=== PATIENT | female | born 1985 | race Caucasian/White ===

== ENCOUNTER → 2016-07-08 | Outpatient (CLI) | payer OTHER ==
[~2016-07-08] MED LIST: PRENTAB26 PO
== END | disposition home or self-care (01) ==
LOC: C.PAPS 09:44
PROVIDERS: ATTEND Physician Assistant
DX: Z12.4 Encounter for screening for malignant neoplasm of cervix (principal)

== ENCOUNTER → 2016-07-12 | Outpatient (CLI) | payer OTHER ==
[2016-07-12 13:56] LABS: PREG INTERNAL NEGATIVE QC NEG CLEAR BACKGROUND; PREG INTERNAL POSITIVE QC POS CONTROL LINE
[2016-07-12 14:09] LABS: PROLACTIN 5.36 ng/mL; THYROID STIMULATING HORMONE 1.26 uIu/ml (0.300-4.500)
== END | disposition home or self-care (01) ==
LOC: C.LAB1850 11:47
PROVIDERS: ATTEND Obstetrics & Gynecology
DX: N91.1 Secondary amenorrhea (principal)

== ENCOUNTER 2019-01-18 06:00 | Inpatient (IN) ==
--- NOTE | 2019-01-16 15:46 | PAT Medication Instructions ---
Medication Instructions Date of Service January 17, 2019 Home Medications vit-iron fum-folic ac [ Vitamin] 1 tab PO QPM Take morning of surgery NOTHING TO EAT OR DRINK AFTER MIDNIGHT Take evening before surgery vit-iron fum-folic ac [ Vitamin] 1 tab PO QPM Other Notes If you have any questions please call us at [phone] or [phone] or [phone] or [phone]
--- NOTE | 2019-01-17 15:16 | Anesthesiology Consultation ---
Date of Service January 17, 2019 Assessment & Plan (1) Encounter for pre-operative examination: - Patient with history of severe pain after last for 30-60 minutes that was unrelieved with pain medications d/t spinal wearing off at end of c/s. Chart Review Chart Review: Acceptable Risk for Surgery and Patient seen in Pre Admission Testing Consults Requested none Teaching & Discussion Pre-Anesthesia Teaching/Discussion Notes: Instructed NPO after midnight before surgery, except medications with 15 cc of water. Medication instructions provided according to the PAT guidelines. History Surgery Operation Date: 01/18/19 07:30 Proposed Procedures p Section in LD - Linda Mesa MD, FACOG s Post Tubal Ligation Labor & Deliv - Linda Mesa MD, FACOG Height/Weight Height: 5 ft 3 in Weight: 112.6 kg Allergies Allergy/AdvReac Type Severity Reaction Status Date / Time Penicillins Allergy Unknown HIVES Verified 01/17/19 13:18 Medications Home Medications Medication Instructions Recorded Confirmed Last Taken vit-iron fum-folic ac 1 tab PO QPM 01/10/19 01/17/19 Unknown [ Vitamin] Past Medical History Medical History (10/26/12) with history of miscarriage Solitary thyroid nodule Uterine scar from previous delivery, antepartum complication Didelphic uterus Urinary tract infection (Resolved) Acid reflux D/T , LAST 2 WEEKS IMPROVED Frequent UTI OVER THE LAST YR UTI CURRENTLY - ABX TX FOR Exercise / Class Metabolic Activity II 4-5 Yardwork/Stairs/Walk up hill (Very active caring for her 3 children. Able to climb FOS. Denies CP or SOB. ) Past Family History Family History Grandmother (Maternal) Diabetes Heart disease Mother Endometriosis Fibroids Multiple gestation Unknown Down syndrome Grandfather (Maternal) Prostate cancer Other Family history of cancer in grandmother Past Surgical History Surgical History History of section X3 (BREECH & REPEAT) S/P dilation and curettage Past Anesthesia History No Hx of Anesthesia Complications and No Family Hx of Anesthesia Complications History of PONV No Hx of PONV and Hx of Motion Sickness Social History Smoking Status: Never smoker Do You Dip or Chew Tobacco: No Hx Alcohol Use: No Hx Substance Use: No substance use type: does not use Review of Systems Patient denies chest pain, shortness of breath, dyspnea on exertion, joint pain, cough, wheezing, palpitations. +Acid Reflux (due to ) Physical Exam Vital Signs BP: 102/68 P: 58 R: 16 T: 97.8 SPO2: 98% on RA Constitutional + obese ENMT Thyromental Distance: > or= 3.5 Finger Breadths (3.5) Mallampati Class: I Neck normal visual inspection and trachea midline; neck extension not limited Respiratory normal respiratory effort Auscultation: lungs clear to auscultation bilaterally Cardiovascular Rate/Rhythm: regular rate and regular rhythm Heart Sounds: no murmur Neurologic moves all extremities Psychiatric Orientation: alert and oriented x 3
--- NOTE | 2019-01-17 18:39 | History and Physical Report ---
DATE OF ADMISSION: 01/18/2019 ADMIT DIAGNOSES: 1. Intrauterine at 39 and 3/7 weeks. 2. Intrauterine growth restriction. 3. Obesity. 4. History of previous section x3. 5. Carrier of group B strep. 6. 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 7. Desires permanent surgical sterilization. HISTORY OF PRESENT ILLNESS: Katerin is a 6, para 3-0-3-3, who presents at 39-3/7th weeks for repeat section. This is her fourth and sterilization. The patient has a history of 3 previous sections, the first in 2006 for a 5 pound 13 ounce baby; the second in 2010 that was a repeat at 39 and 6 and another repeat section in 2014 at 39 and 6/7th weeks. This has been complicated by intrauterine growth restriction which has been followed with weekly HYUN and Dopplers which have been normal and twice weekly NSTs, which have been within normal limits. The patient notes that she feels well. She has no signs or symptoms of labor at this time. The patient also reports that she would like bilateral salpingectomy for her tubal ligation for her sterilization procedure. ALLERGIES: PENICILLIN CAUSING HIVES. MEDICATIONS: vitamin. PAST MEDICAL HISTORY: Obesity, thyroid nodule and history of chickenpox. PAST SURGICAL HISTORY: x3 and a D and E. PAST OB AND AUTOMATION ANALYST HISTORY: As noted above. Additionally, she had a in 2007 which was a spontaneous AB at 9 weeks and a demise at 15 weeks 2 days in 2012, which was delivered via induced vaginal delivery via Cytotec. The patient has no history of STDs and no abnormal Pap smears. SOCIAL HISTORY: The patient denies tobacco, alcohol or drug use. PHYSICAL EXAMINATION: GENERAL: This is a well-developed, well-nourished white female in no acute distress. VITAL SIGNS: Her blood pressure is 116/78, her weight is 247.6 pounds. NECK: Supple. CARDIOVASCULAR: Regular rate and rhythm. LUNGS: Clear to auscultation. ABDOMEN: Soft, gravid and nontender. EXTREMITIES: Show some trace edema, but was otherwise negative. PELVIC: Deferred. LABORATORY DATA: Blood type AB positive, antibody negative, Pap normal, rubella immune, RPR nonreactive, group B strep positive in the urine. Hepatitis B negative, HIV negative, chlamydia and gonorrhea negative. SMA and cystic fibrosis declined. Glucose tolerance test x2 within normal limits and GBS is positive in the urine. ASSESSMENT AND PLAN: This patient is a 6, para 3-0-2-3 with history of previous section x3 who presents for repeat section. Additionally, she also desires permanent surgical sterilization and request bilateral salpingectomy. The risks of the surgery were discussed with the patient including the risks of anesthesia, bleeding requiring transfusion, infection, poor wound healing, damage to surrounding structures including bowel, bladder, vessels, nerves and ureters with need for further surgery, hospitalization or intervention. We discussed the other risks of surgery including heart attack, blood clot, stroke or . We also discussed the other options other than sterilization including barriers, hormones, long-term reversible contraceptive options of vasectomy. She declines. I discussed with the patient that I would try to do bilateral salpingectomy, but if vascular supply was a concern then I would take as much of the tube as I could. The consent form was reviewed. Questions were asked and answered. Surgery is planned for 01/18/2019.
[~2019-01-18 06:00] MED LIST changes: +CEFAZOLIN 3,000 MG in DEXTROSE 5% 50 ML IV SCH; +CITRIC ACID/SODIUM CITRATE 15 ML UDC PO SCH; +LACTATED RINGER'S 1,000 ML IV SCH; -PRENTAB26 PO
[2019-01-18] MEDS ORDERED: MoRPHine SULFATE PF 1 MG/ML 10 ML AMP/VIAL ONE (06:58)
[2019-01-18] MEDS ORDERED: fentaNYL citrate 100 MCG/2 ML VIAL ONE (06:58)
--- NOTE | 2019-01-18 07:33 | History & Physical Bridge Note ---
Date of Service January 18, 2019 History & Physical Bridge Note I have examined the patient, reviewed the History & Physical and in the interval since the performance of the History & Physical I have noted the following changes of clinical significance: no changes noted
[2019-01-18] MEDS ORDERED: OXYTOCIN 10 UNITS/ML VIAL ONE (07:43)
[2019-01-18] MEDS ORDERED: ONDANSETRON INJ 2 MG/ML 2 ML VIAL ONE (08:25)
[2019-01-18] MEDS ORDERED: KETOROLAC 30 MG/ML VIAL IV PRN (08:35)
[2019-01-18] MEDS ORDERED: MoRPHine SULFATE PF 1 MG/ML 10 ML AMP/VIAL INT SPINAL ONE (08:35)
[2019-01-18] MEDS ORDERED: ePHEDrine sulfate 50 MG/ML AMP IV PRN (08:35)
[2019-01-18] MEDS ORDERED: NALBUPHINE HCL INJ 10 MG/ML AMP IV PRN (08:35)
[2019-01-18] MEDS ORDERED: LACTATED RINGER'S 500 ML IV PRN (08:35)
[2019-01-18] MEDS ORDERED: NALOXONE HCL 0.4 MG/1 ML VIAL/CARP IV PRN (08:35)
[2019-01-18] MEDS ORDERED: MoRPHine SULFATE 2 MG/ML CARP IV PRN (08:35)
[2019-01-18] MEDS ORDERED: ONDANSETRON INJ 2 MG/ML 2 ML VIAL IV PRN ×2 (08:35→08:58)
[2019-01-18] MEDS ORDERED: HYDROmorphone INJ 0.5 MG/0.5 ML SYR IV PRN (08:35)
[2019-01-18] MEDS ORDERED: NALOXONE HCL 1 MG in SODIUM CHLORIDE 0.9% 1000ML 1,000 ML IV PRN (08:35)
[2019-01-18] MEDS ORDERED: NALOXONE HCL 0.08 MG in SYRINGE 1.8 ML IV PRN (08:35)
[2019-01-18] MEDS ORDERED: PHENYLEPHRINE 100MCG/ML 5ML SYR ONE (08:42)
[2019-01-18] MEDS ORDERED: NO NARCOTICS OR SEDATIVES SCH (08:45)
[2019-01-18] MEDS ORDERED: SODIUM CHLORIDE 0.9% 1000ML 1,000 ML IV SCH (08:45)
[2019-01-18] MEDS ORDERED: BENZOCAINE 20% AER SPR 82.5 GM CAN EXT PRN (08:58)
[2019-01-18] MEDS ORDERED: PROMETHAZINE HCL 25 MG in SODIUM CHLORIDE 0.9% 50 ML IV PRN (08:58)
[2019-01-18] MEDS ORDERED: MAGNESIUM HYDROXIDE SUSP 30 ML UDC PO PRN (08:58)
[2019-01-18] MEDS ORDERED: HYDROCORTISONE ACETATE 25 MG SUPP PR PRN (08:58)
[2019-01-18] MEDS ORDERED: SUPERCREAM 0.870% 15 GM JAR EXT PRN (08:58)
[2019-01-18] MEDS ORDERED: DIPHTHERIA/TETANUS/PERTUSSIS 0.5 ML SYR/VIAL IM ONE (08:58)
[2019-01-18] MEDS ORDERED: SENNA 8.6 MG TAB PO PRN (08:58)
[2019-01-18] MEDS ORDERED: LACTATED RINGER'S 1,000 ML IV SCH (09:00)
--- NOTE | 2019-01-18 09:20 | Anesthesiology Progress Note ---
Date of Service January 18, 2019 Anesthesia Post Procedure Vital Signs Vital Signs: Temp Pulse Resp BP Pulse Ox 01/18/19 09:18 68 122/71 01/18/19 09:15 68 95 01/18/19 09:10 68 97 01/18/19 09:07 67 122/73 01/18/19 09:05 71 95 01/18/19 06:42 58 L 139/81 01/18/19 06:08 36.6 C 18 Transfer of Care Handoff Completed per policy Notes Mental Status: alert / awake / arousable Patient Amnestic to Procedure: Yes Nausea / Vomiting: adequately controlled Pain: adequately controlled Airway Patency, RR, SpO2: stable & adequate BP & HR: stable & adequate Hydration State: stable & adequate Neuraxial Anesthesia: was administered and sensory block is resolving Anesthetic Complications: no major complications apparent and Pt Satisfied with anesthetic care
[2019-01-18] MEDS: DiphenhydrAMINE HCL 50 MG/ML VIAL IV PRN ×2 (10:53→22:35)
[2019-01-18] MEDS: OXYTOCIN 20 UNITS in LACTATED RINGER'S 1,000 ML IV SCH ×2 (11:40→20:27)
--- NOTE | 2019-01-18 14:07 | Post Operative Brief Note ---
PG Immediate Post Op with CF Date of Surgery January 18, 2019 Pre & Post Diagnosis Operation Date: 01/18/19 07:30 Pre-Op Diagnosis: HX OF PREVIOUS SECTION X 3 DESIRES STERILIZATION IUGR UNICORNUATE UTERUS BREECH PRESENTATION Post-Op Diagnosis: SAME PREOP Procedure Operation Date: 01/18/19 07:30 Actual Procedures p Section in LD;LIVE FEMALE AT 0822 - Linda Mesa MD, FACOG s Bilateral Salpingectomy Labor & Deliv - Linda Mesa MD, FACOG Surgeon Linda Mesa MD, FACOG Forest Technology Professor DR. Bhatti Estimated Blood Loss 500 Findings Consistent with Post-Op Diagnosis Specimens Specimen Description: CORD BLOOD PLACENTA (HOLD) LEFT AND RIGHT FALLOPIAN TUBES
--- NOTE | 2019-01-18 14:07 | Post Operative Brief Note ---
PG Immediate Post Op with CF Date of Surgery January 18, 2019 Pre & Post Diagnosis Operation Date: 01/18/19 07:30 Pre-Op Diagnosis: HX OF PREVIOUS SECTION X 3 DESIRES STERILIZATION IUGR UNICORNUATE UTERUS BREECH PRESENTATION Post-Op Diagnosis: SAME PREOP Procedure Operation Date: 01/18/19 07:30 Actual Procedures p Section in LD;LIVE FEMALE AT 0822 - Linda Mesa MD, FACOG s Bilateral salpingectomy Labor & Deliv - Linda Mesa MD, FACOG Surgeon Linda Mesa MD, FACOG Director Dance DR. Bhatti Estimated Blood Loss 500 Findings Consistent with Post-Op Diagnosis Specimens Specimen Description: CORD BLOOD PLACENTA (HOLD) LEFT AND RIGHT FALLOPIAN TUBES Drains Rowell Catheter
[2019-01-18] MEDS: SIMETHICONE 80 MG CHEW PO SCH ×3 (16:05→20:27)
[2019-01-18] MEDS: DOCUSATE SODIUM 100 MG CAP PO SCH (20:27)
--- NOTE | 2019-01-18 21:15 | Operative Report ---
DATE OF OPERATION: 01/18/2019 PREOPERATIVE DIAGNOSES: 1. History of previous section x3. 2. Desires permanent surgical sterilization. 3. Intrauterine growth restriction. 4. Right unicornuate uterus. 5. Breech. POSTOPERATIVE DIAGNOSES: 1. History of previous section x3. 2. Desires permanent surgical sterilization. 3. Intrauterine growth restriction. 4. Right unicornuate uterus. 5. Breech. PROCEDURES: 1. Repeat lower transverse section. 2. Bilateral salpingectomy. SURGEON: Linda Mesa MD. PAINT TECHNICIAN: Sandra Bhatti MD. ESTIMATED BLOOD LOSS: 500 mL. URINE OUTPUT: 250 mL of clear yellow urine drained from the bladder at the end of procedures. INTRAVENOUS FLUIDS: 1500 mL of IV fluids. INDICATIONS: The patient is a 6, para 3-0-2-3 who presents to labor and delivery for repeat section. She had three previous C-sections and desires permanent surgical sterilization. FINDINGS: Unicornuate right uterus with a small left rudimentary left horn. The left ovary was wrapped around the uterus and attached to the lower uterine segment of the right uterine horn. Both tubes appeared normal bilaterally. COMPLICATIONS: None. DRAINS: Rowell. DISPOSITION: To recovery room in stable condition. PROCEDURE: The patient was taken to the operating room where she was identified verbally and by bracelet. She was seated at the operating table where spinal anesthetic was placed. She was then laid in the dorsal supine position with a leftward tilt. A Rowell catheter was placed. She was prepped and draped in normal sterile fashion. Timeout was done identifying correct patient, procedure, positioning, preoperative antibiotics. There were no concerns. A Pfannenstiel skin incision was made over the previous skin incision and taken down to the underlying layer of fascia with the knife. The fascia was incised within the midline with the knife and taken out laterally with scissors. The superior edge of the fascial incision was grasped, elevated and the underlying layer of rectus muscle was taken off bluntly with scissors. In a similar fashion, the inferior edge of the fascial incision was grasped, elevated and the underlying layer of rectus muscle was taken off bluntly and with scissors. The muscles were together in the midline and so they were grasped and elevated with snaps and using a sharp knife the muscles were in the midline and then the peritoneum was entered sharply. There were no adhesions noted, so the peritoneum and muscles were taken superiorly and inferiorly using sharp scissors with good visualization. The incision was stretched and the bladder blade was placed. The uterus was palpated and the fetus was found to be in breech presentation. A bladder flap was made by grasping the vesicouterine peritoneum entering with scissors and taken out bluntly with scissors. The bladder flap was created digitally. The bladder blade was replaced. Hysterotomy incision was scored with a knife. It was entered with a snap. Clear fluid was noted. The incision was stretched cephalad and caudad. The roll coating machine operator's hands were reached into the uterus. The baby was presenting venancio breech presentation. The buttocks were delivered using a fundal pressure. The legs were delivered and reduced. The right arm then the left arm was delivered and then using fundal pressure, the head was delivered without difficulty. The nose and mouth were bulb suctioned. There was immediate cry. The cord was clamped and cut and the infant was handed off to the waiting pediatricians for drying and attention. Cord blood was obtained. The placenta was manually extracted. The uterus was exteriorized and cleared of all clot and debris with moistened laparotomy sponges. The hysterotomy incision was repaired in 1 layer in a running locked 0 Vicryl. Attention was then turned to the tubes where first on the right and then on the left bilateral salpingectomies were performed. First on the right, the tube was from the uterus. The mesosalpinx was then taken down and then once at the uterus the tube was clamped with a Lanny clamp. It was excised and it was suture ligated and then tied with a free tie. The left foot side was a little bit more complicated because of the rudimentary left horn. In a similar fashion, the fimbriated end was from the ovary. We were able to find a clear area under the tube and a Lanny clamp was placed through this and the tube was clamped and and then the tubal segment was removed using cautery. This was a complete salpingectomy about half of the tube was probably removed. It was difficult to tell how much tube was taken given the rudimentary left horn. Hemostasis was then noted to be excellent from both sites. The hysterotomy incision was again inspected and found to be hemostasis. The uterus was reanteriorized, everything was examined. Hemostasis was noted to be good. The muscles were reapproximated in the midline with 2 interrupted sutures of 0 Vicryl. The fascia was reapproximated using 0 Vicryl starting at the corners and meeting in the midline. The subcuticular tissue was hemostatic. It was reapproximated with several interrupted horizontal mattress sutures of 2-0 Vicryl and the skin was then closed with a subcuticular stitch of 4-0 Vicryl. All sponge, lap and needle counts were correct x2. The patient tolerated the procedure well and was taken to the recovery room in stable condition. I attest to the content of the Intraoperative Record and any orders documented therein. Any exception s are noted below.
[2019-01-19] MEDS ORDERED: DC INTRASPINAL MORPHINE SCH (02:35)
[2019-01-19] MEDS ORDERED: DiphenhydrAMINE HCL 50 MG/ML VIAL IV PRN (02:36)
[2019-01-19] MEDS ORDERED: KETOROLAC 30 MG/ML VIAL IV PRN (02:36)
[2019-01-19] MEDS ORDERED: MEPERIDINE HCL 50 MG/ML CARP IV PRN (02:36)
[2019-01-19 06:36] LABS: Basophils # (auto) 0.02 K/uL (0-0.2); Basophils % (auto) 0.4 %; Hematocrit (blood only) 30.3 % (37-47); Hemoglobin 9.9 g/dL (12.0-16.0); Immature Granulocytes # (auto) 0.01 K/uL (0.00-0.02); Immature Granulocytes % (auto) 0.2 %; Lymphocytes # (auto) 1.39 K/uL (1.2-3.4); Lymphocytes % (auto) 27.6 %; Mean Corpuscular Hgb Conc 32.7 g/dL (32-36); Mean Corpuscular Volume 87.3 fL (80-100); Mean Platelet Volume 10.7 fL (7.4-10.4); Monocytes # (auto) 0.44 K/uL (0.11-0.59); Monocytes % (auto) 8.7 %; Neutrophils # (auto) 3.07 K/uL (1.4-6.5); Neutrophils % (auto) 61.1 %; Platelet Count 143 K/uL (130-400); RDW Coefficient of Variation 15.9 % (11.5-14.5); RDW Standard Deviation 50.5 fL (36.4-46.3); Red Blood Count 3.47 M/uL (4.2-5.4); White Blood Count 5.03 K/uL (4.8-10.8)
[2019-01-19] MEDS: PRENATAL VITAMIN 1 TAB PO SCH (08:17)
[2019-01-19] MEDS: FERROUS SULFATE 325 MG TAB PO SCH (08:17)
[2019-01-19] MEDS: DOCUSATE SODIUM 100 MG CAP PO SCH ×2 (08:17→19:47)
[2019-01-19] MEDS: SIMETHICONE 80 MG CHEW PO SCH ×4 (08:17→19:47)
--- NOTE | 2019-01-19 09:05 | Obstetrical Progress Note ---
Date of Service <Valerie Andersen MD - Last Filed: 01/19/19 09:06> January 19, 2019 Assessment & Plan <Valerie Andersen MD - Last Filed: 01/19/19 09:06> (1) Obesity complicating peripregnancy, antepartum: Present on Admission?: Yes (2) Encounter for care and examination after delivery: Monitor healing of C/S incision, keep covered and dry Encourage ambulation progress to full OB diet as tolerated Consider discharge tomorrow morning. Day #:: 2 Subjective <Valerie Andersen MD - Last Filed: 01/19/19 09:06> Ambulation: limited ambulation (no ambulation yet) Voiding: becker catheter in place (removed this morning) Passing Gas:: Yes Diet Tolerance:: clear liquids Feeding Type:: breast feeding Current Pain Level(1-10): 0 Constitutional: no fever, no chills and no weakness Respiratory: no cough and no dyspnea Cardiovascular: no chest pain, no edema and no calf pain Breast: no breast pain Gastrointestinal: no abdominal pain, no nausea, no vomiting, no cramping, no constipation and no diarrhea/loose stools No bowel movement yet, passing gas. Neurologic: no headache(s) Physical Exam <Valerie Andersen MD - Last Filed: 01/19/19 09:06> Constitutional well developed, well nourished and + obese; no acute distress Respiratory normal respiratory effort; no respiratory distress Auscultation: no crackles, no rales, no rhonchi and no wheezes Cardiovascular Rate/Rhythm: regular rate and regular rhythm Heart Sounds: no gallop, no murmur and no cardiac rub Gastrointestinal (Abdomen) Inspection/Auscultation: abdomen normal to inspection, + abdomen distended and normal bowel sounds Percussion/Palpation: abdomen soft Genitourinary Speculum/Bimanual Exam: + uterus enlarged; uterus nontender C/S incision healing well, dressing removed this morning. Small surface vessel bleeding, new dressing placed over it. Mild tenderness to palpation of incision. Results & Data <Valerie Andersen MD - Last Filed: 01/19/19 09:06> Vital Signs (Past 12 Hours) Vital Signs Temp Pulse Resp BP Pulse Ox 01/19/19 08:05 36.8 C 67 18 113/69 97 01/19/19 05:28 36.7 C 60 18 120/62 01/19/19 02:00 18 98 01/19/19 01:00 18 98 01/18/19 23:30 36.5 C 55 L 18 121/60 99 01/18/19 22:00 18 97 01/18/19 21:00 18 98 <Sandra Ragland MD, FACOG - Last Filed: 01/19/19 09:18> Co-Signing Physician Notes Resident Physician Supervision Note: I was present with Dr. Andersen during the history and exam. I discussed the case with the resident and agree with the findings and plan as documented in the note. Any exceptions or clarifications are listed here: [None] Documented By: Sandra Ragland MD, FACOG
[2019-01-19] MEDS: OXYCODONE/ACETAMINOPHEN 5mg/325mg TAB PO PRN ×3 (11:55→20:59)
[2019-01-19] MEDS: IBUPROFEN 600 MG TAB PO PRN ×3 (11:57→20:59)
[2019-01-19] MEDS ORDERED: BISACODYL 5 MG TABEC PO SCH (20:00)
[2019-01-20 06:46] LABS: Hematocrit (blood only) 31.9 % (37-47); Hemoglobin 10.2 g/dL (12.0-16.0)
[2019-01-20] MEDS: SIMETHICONE 80 MG CHEW PO SCH ×2 (08:21→13:50)
[2019-01-20] MEDS: PRENATAL VITAMIN 1 TAB PO SCH (08:21)
[2019-01-20] MEDS: FERROUS SULFATE 325 MG TAB PO SCH (08:21)
[2019-01-20] MEDS: DOCUSATE SODIUM 100 MG CAP PO SCH (08:21)
--- NOTE | 2019-01-20 08:57 | Obstetrical Progress Note ---
Date of Service January 20, 2019 Assessment & Plan (1) Encounter for care and examination after delivery: Doing well. Plan d/c. Instructions given. To watch the incision closely. Call with increased bruising, d/c, blood or pus. Day #:: 2 Subjective Ambulation: ambulating normally Voiding: no voiding problems Passing Gas:: Yes Diet Tolerance:: regular diet Lochia:: Small Feeding Type:: breast feeding Doing well. No issues this am. Physical Exam Constitutional WD/WN, vitals as above Cardiovascular Extremities: no edema Gastrointestinal (Abdomen) abdomen soft, appropriately tender, nd incision--c/d/i, some bruising noted on the upper mons above the incision. Results & Data Vital Signs (Past 12 Hours) Vital Signs Temp Pulse Resp BP 01/20/19 00:35 36.4 C L 67 18 113/77
[2019-01-20] MEDS ORDERED: BISACODYL 10 MG SUPP PR PRN (08:58)
[2019-01-20] MEDS: IBUPROFEN 600 MG TAB PO PRN ×2 (09:30→13:51)
[2019-01-20] MEDS: OXYCODONE/ACETAMINOPHEN 5mg/325mg TAB PO PRN ×2 (09:30→13:50)
--- NOTE | 2019-01-22 08:30 | Discharge Summary ---
ADMISSION DIAGNOSES: 1. Intrauterine at 39 and 3/7 weeks. 2. Intrauterine growth restriction. 3. Obesity. 4. History of previous section x3. 5. Carrier of group B strep. 6. Didelphys uterus with left rudimentary horn. 7. Desires permanent surgical sterilization. DISCHARGE DIAGNOSES: 1. Intrauterine at 39 and 3/7 weeks. 2. Intrauterine growth restriction. 3. Obesity. 4. History of previous section x3. 5. Carrier of group B strep. 6. Didelphys uterus with left rudimentary horn. 7. Desires permanent surgical sterilization. PROCEDURES: Repeat lower transverse section with bilateral salpingectomy. HISTORY OF PRESENT ILLNESS: The patient is a 6, para 3-0-3-3, who presents at 39-3/7 weeks for repeat section. This is her fourth and she desires sterilization. The patient has a history of 3 previous C-sections, the first in 2006 for a 5-pound, 13-ounce baby, the second in 2010, repeat at 39 and 6 and a repeat in 2014 at 39 and 6. This has been complicated by an intrauterine growth restriction which has been followed with weekly HYUN and Dopplers which have been normal and twice-weekly NSTs, which have been within normal limits. The patient feels well. She has no signs or symptoms of labor. She also reports that she would like bilateral salpingectomy for tubal ligation at the time of her sterilization procedure. For the rest of the patient's detailed history and physical, please see her history and physical. ASSESSMENT: This is a 6, para 3-0-2-3 with a history of previous section x3 who presents for repeat section. Additionally, she desires permanent surgical sterilization and requested bilateral salpingectomy. HOSPITAL COURSE: The patient was admitted. She underwent a repeat lower transverse section with bilateral salpingectomy with an estimated blood loss of 500 mL. The patient's course was uncomplicated. She tolerated a regular diet, ambulated without difficulty, voided after the removal of her Rowell catheter, tolerated p.o. pain meds. She was discharged on postoperative day #2 with a short script for Percocet and to return in 6 weeks for postoperative visit.
== END 2019-01-20 14:27 | disposition home or self-care (01) | DRG 785 ==
LOC: 4S1 06:00 → EDSTATUS 07:30 → 4S2 12:22
PROC: M.PPTLD (2019-01-18 07:30)